=== PATIENT | female | born 1985 | race Caucasian/White ===

== ENCOUNTER 2016-07-06 15:35 | Emergency (ER) | payer OTHER ==
[2016-07-06 16:42] VITALS: BP 109/70
--- NOTE | 2016-07-06 17:05 | UC ---
Abdominal Pain Female HPI - History of Current Complaint Chief Complaint: UCAbdominalPain Stated Complaint: NAUSEA/ABDOMINAL CRAMPING X 1MO Time Seen by Provider: 07/06/16 16:36 Hx Obtained From: Patient Hx Last Menstrual Period: 06/30/16 ?: No Onset/Duration: Sudden Onset, Lasting Weeks - 4, Still Present Timing: Intermittent Episodes Lasting: - 30 minutes Severity Initially: Moderate Severity Currently: None Location: Discrete At: RUQ Radiates: No Character: Cramping Aggravating Factor(s): Food Associated Signs and Symptoms: Positive: Nausea, Diarrhea, Other: - Acholic stool - Risk Factors Ectopic Risk Factor: Negative Ovarian Torsion Risk Factor: Reproductive Age Allergies/Adverse Reactions: Allergies Allergy/AdvReac Type Severity Reaction Status Date / Time No Known Allergies Allergy Verified 07/06/16 16:42 PMH/Surg Hx/FS Hx/Imm Hx Previously Healthy: Yes Endocrine History Of: Denies: Diabetes Cardiovascular History Of: Denies: Hypertension Respiratory History Of: Denies: Asthma - Surgical History Surgical History: Yes Surgery Procedure, Year, and Place: Appendectomy, 2006, [place]; Right Oopherectomy, 2003, [place]. 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 four [drinks]" Substance Use Type: None Smoking Status (MU): Former Smoker Type: Cigarettes Amount Used/How Often: <1 PPD Length of Time of Smoking/Using Tobacco: 1 Year Have You Smoked in the Last Year: No When Did the Patient Quit Smoking/Using Tobacco: 2009 - Immunization History Most Recent Tetanus Shot: 2009 Review of Systems Constitutional: Chills, Other - sweats with chills at night Gastrointestinal: Vomiting - but mostly nausea., Diarrhea All Other Systems Reviewed And Are Negative: Yes Physical Exam Triage Information Reviewed: Yes Appearance: Well-Appearing, No Pain Distress, Well-Nourished Vital Signs: Initial Vital Signs Temp 98.4 F 07/06/16 16:37 Pulse 82 07/06/16 16:37 Resp 16 07/06/16 16:37 BP 109/70 07/06/16 16:37 Pulse Ox 100 07/06/16 16:37 Eye Exam: Normal ENT Exam: Normal Neck exam: Normal Respiratory Exam: Normal Cardiovascular Exam: Normal Abdomen Description: Positive: No Organomegaly. Negative: Nontender - Tender RUQ with positive cummins's sign. Bowel Sounds: Positive: Hypoactive Musculoskeletal Exam: Normal Neurological Exam: Normal Psychological Exam: Normal Skin Exam: Normal Abd Pain Female Course/Dx - Differential Dx/Diagnosis Differential Diagnosis: Appendicitis, Ectopic , Gall Bladder Disease Provider Diagnoses: Right upper quadrant abdominal pain. Acholic stool Discharge - Discharge Plan Condition: Stable Disposition: HOME Prescriptions: Ondansetron TAB* [Zofran Tab*] 4 mg PO Q6H PRN #20 tab PRN Reason: Nausea Patient Education Materials: Abdominal Pain (ED), Acute Nausea and Vomiting (ED ), Ondansetron (By mouth)
[2016-07-07 10:29] LABS: Hematocrit 39 % (35-47); Hemoglobin 12.9 g/dl (12.0-16.0); Mean Corpuscular HGB Conc 34 g/dl (31-36); Mean Corpuscular Hemoglobin 30 pg (27-31); Mean Corpuscular Volume 88 fL (80-97); Mean Platelet Volume 8 um3 (7.4-10.4); Red Blood Count 4.37 10^6/ul (4.0-5.4); Red Cell Distribution Width 14 % (10.5-15); White Blood Count 5.3 10^3/ul (3.5-10.8)
[2016-07-07 11:29] LABS: BUN/Creatinine Ratio 17.3 (8-20); Calcium 9.3 mg/dL (8.6-10.3); EGFR African American 85.1 (>60); EGFR Non-African American 66.2 (>60); Potassium 4.5 mmol/L (3.5-5.0); Total Bilirubin 0.4 mg/dL (0.2-1.0)
[2016-07-07 11:33] LABS: Erythrocyte Sed Rate 11 mm/Hr (0-14)
== END 2016-07-06 17:40 | disposition home or self-care (01) ==
LOC: UCCORT 15:35
DX: R10.11 Right upper quadrant pain (principal); R19.5 Other fecal abnormalities; Z90.721 Acquired absence of ovaries, unilateral; Z87.891 Personal history of nicotine dependence
CPT/HCPCS: 36415; 80053; 81025; 83690; 85025; 85652; 87086; 99212; G0463

== ENCOUNTER 2017-02-22 17:55 | Emergency (ER) | payer OTHER ==
--- NOTE | 2017-02-22 18:00 | UC ---
Respiratory Complaint HPI - HPI Summary HPI Summary: 31 YEAR OLD FEMALE PRESENTS WORSENING WITH COUGH X 2 WEEKS. SHE IS TACHYCARDIC AND CANNOT TAKE A DEEP BREATH. - History of Current Complaint Stated Complaint: COUGH,EAR COMPLAINT Time Seen by Provider: 02/22/17 17:59 Hx Obtained From: Patient Hx Last Menstrual Period: 06/30/16 Onset/Duration: Sudden Onset Severity Initially: Moderate Severity Currently: Moderate Pain Scale Used: 0-10 Numeric - 5 - Allergies/Home Medications Allergies/Adverse Reactions: Allergies Allergy/AdvReac Type Severity Reaction Status Date / Time No Known Allergies Allergy Verified 02/22/17 18:06 Home Medications: Home Medications NK [No Home Medications Reported] 02/22/17 [History Confirmed 02/22/17] PMH/Surg Hx/FS Hx/Imm Hx Previously Healthy: Yes - Surgical History Surgical History: Yes Surgery Procedure, Year, and Place: Appendectomy, 2006, [place]; Right Oopherectomy, 2003, [place]. Tubal - Family History Known Family History: Positive: Hypertension, Diabetes - Social History Alcohol Use: "weekly ... four [drinks]" Substance Use Type: None Smoking Status (MU): Former Smoker Type: Cigarettes Amount Used/How Often: <1 PPD Length of Time of Smoking/Using Tobacco: 1 Year Have You Smoked in the Last Year: No When Did the Patient Quit Smoking/Using Tobacco: 2009 - Immunization History Most Recent Tetanus Shot: 2009 Review of Systems Constitutional: Negative Skin: Negative Eyes: Negative ENT: Negative Respiratory: Cough Cardiovascular: Negative Gastrointestinal: Negative Genitourinary: Negative Motor: Negative Neurovascular: Negative Musculoskeletal: Negative Neurological: Negative Psychological: Negative All Other Systems Reviewed And Are Negative: Yes Physical Exam Triage Information Reviewed: Yes Eye Exam: Normal ENT Exam: Normal Dental Exam: Normal Neck exam: Normal Neck: Positive: 1 Respiratory: Positive: Wheezing Cardiovascular Exam: Normal Abdominal Exam: Normal Musculoskeletal Exam: Normal Neurological Exam: Normal Psychological Exam: Normal Skin Exam: Normal Respiratory Course/Dx - Differential Dx/Diagnosis Provider Diagnoses: COUGH. WHEEZING. FEVER. TACHYCARDIA Discharge - Discharge Plan Condition: Stable Disposition: AGAINST MEDICAL ADVICE Referrals: Prudencio Blandon [Physician Alarm Installer] - Additional Instructions: SPOKE TO DR CARRIZALES FROM [facility] [place] AND TOLD HIM WE FELT THE PATIENT NOT STABLE NEEDED A HIGHER LEVEL OF CARE.
[2017-02-22 18:06] VITALS: BP 131/89
[2017-02-22] MEDS ORDERED: Ibuprofen TAB* 400 MG PO ONE (18:21)
[2017-02-22] MEDS ORDERED: Albuterol/Ipratropium NEB.SOL* Albuterol 2.5 MG/Ipratropium 0.5 MG 3 ML INH ONE (18:22)
--- NOTE | 2017-02-22 19:00 | RAD ---
HISTORY: Cough, wheezing COMPARISONS: None VIEWS: 4: Frontal dual-energy and lateral views of the chest. FINDINGS: CARDIOMEDIASTINAL SILHOUETTE: The cardiomediastinal silhouette is normal. NETO: The neto are normal. PLEURA: The costophrenic angles are sharp. No pleural abnormalities are noted. LUNG PARENCHYMA: There is a diffuse reticulonodular pattern ABDOMEN: The upper abdomen is clear. There is no subphrenic gas. BONES AND SOFT TISSUES: No bone or soft tissue abnormalities are noted. OTHER: None. IMPRESSION: DIFFUSE RETICULONODULAR INTERSTITIAL OPACIFICATION. THE DIFFERENTIAL INCLUDES INFECTIOUS OR INFLAMMATORY PNEUMONITIS.
--- NOTE | 2017-02-22 20:50 | UC ---
Respiratory Complaint HPI - HPI Summary HPI Summary: TWO WEEKS OF PERSISTENT COUGH, CONGESTION. SEVERE WORSENING SHORTNESS OF BREATH FOR FOUR DAYS. LIVES IN TRAILOR WITH MOLD IN FLOODED AREA. VITAL SIGNS SHOW TACHYPNEA 36. FEVER 99.3F. TACHYCARDIA 110. - History of Current Complaint Chief Complaint: UCRespiratory Stated Complaint: COUGH,EAR COMPLAINT Time Seen by Provider: 02/22/17 17:59 Hx Obtained From: Patient Hx Last Menstrual Period: 02/18 Onset/Duration: Gradual Onset, Lasting Weeks, Still Present Timing: Intermittent Episodes Severity Initially: Moderate Severity Currently: Severe Character: Cough: Productive Associated Signs And Symptoms: Positive: URI, Hoarseness. Negative: Calf Pain, Calf Swelling, Nasal Congestion - Risk Factors Pulmonary Embolism Risk Factors: Negative Cardiac Risk Factors: Negative Pseudomonas Risk Factors: Negative Tuberculosis Risk Factors: Negative - Allergies/Home Medications Allergies/Adverse Reactions: Allergies Allergy/AdvReac Type Severity Reaction Status Date / Time No Known Allergies Allergy Verified 02/22/17 18:06 Home Medications: Home Medications NK [No Home Medications Reported] 02/22/17 [History Confirmed 02/22/17] PMH/Surg Hx/FS Hx/Imm Hx Previously Healthy: Yes - Surgical History Surgical History: Yes Surgery Procedure, Year, and Place: Appendectomy, 2006, [place]; Right Oopherectomy, 2003, [place]. Tubal ligation - Family History Known Family History: Positive: Hypertension, Diabetes - Social History Occupation: Employed Full-time Lives: With Family Alcohol Use: Occasionally Substance Use Type: None Smoking Status (MU): Former Smoker Type: Cigarettes Amount Used/How Often: <1 PPD Length of Time of Smoking/Using Tobacco: 1 Year Have You Smoked in the Last Year: No When Did the Patient Quit Smoking/Using Tobacco: 2009 - Immunization History Most Recent Tetanus Shot: 2010 Review of Systems Constitutional: Fever, Fatigue Skin: Negative Eyes: Negative ENT: Ear Ache Respiratory: Shortness Of Breath, Cough Cardiovascular: Negative Gastrointestinal: Negative Genitourinary: Negative Motor: Negative Neurovascular: Negative Musculoskeletal: Negative Neurological: Negative Psychological: Negative All Other Systems Reviewed And Are Negative: Yes Physical Exam Triage Information Reviewed: Yes Appearance: No Pain Distress, Well-Nourished, Ill-Appearing Vital Signs: Initial Vital Signs Temp 99.3 F 02/22/17 18:00 Pulse 110 02/22/17 18:00 Resp 36 02/22/17 18:00 BP 131/89 02/22/17 18:00 Pulse Ox 98 02/22/17 18:00 Vital Signs Reviewed: Yes Eye Exam: Normal ENT: Positive: Pharynx normal, Nasal congestion, TM dull Dental Exam: Normal Neck exam: Normal Neck: Positive: Supple, Nontender, No Lymphadenopathy Respiratory: Positive: Chest non-tender, No respiratory distress, Wheezing, Other: - TACHYPNEA Cardiovascular: Positive: No Murmur, Pulses Normal, Brisk Capillary Refill, Tachycardia Abdominal Exam: Normal Musculoskeletal Exam: Normal Musculoskeletal: Positive: Strength Intact, ROM Intact Neurological Exam: Normal Psychological Exam: Normal Skin Exam: Normal UC Diagnostic Evaluation - Laboratory O2 Sat by Pulse Oximetry: 98 Respiratory Course/Dx - Course Course Of Treatment: DISCUSSED CASE WITH DR GARCIA. DR GARCIA EVALUATED MEGHAN WITH ME AND RECOMMENDED TO PATIENT HIGHER LEVEL OF EVALUATION AT EMERGENCY DEPARTMENT AND DISCUSSED OPTIONS AND OUTCOMES WITH PATIENT. MEGHAN ELECTED TO GO TO [facility] BY PRIVATE CAR. - Differential Dx/Diagnosis Differential Diagnosis/HQI/PQRI: Bronchitis, SARS, Sinusitis, Other - SIRS CRITERIA Provider Diagnoses: PNEUMONITIS; SIRS CRITERIA - Physician Notification/Consults Discussed Patient Care With: Shantel Pleitez Time Discussed With Above Provider: 19:25 Instructed by Provider To: MD Will See In ED Discharge - Discharge Plan Condition: Stable Disposition: HOME Referrals: Prudencio Blandon [Physician Insurance Loss Assessor] -
== END 2017-02-22 19:29 | disposition left against medical advice (07) ==
LOC: UCCORT 17:55
DX: J18.8 Other pneumonia, unspecified organism (principal); R65.11 Systemic inflammatory response syndrome (SIRS) of non-infectious origin with acute organ dysfunction; Z53.21 Procedure and treatment not carried out due to patient leaving prior to being seen by health care provider
CPT/HCPCS: 71020; 99213; A9270-GY; G0463

== ENCOUNTER 2017-02-25 12:48 | Emergency (ER) | payer OTHER ==
[2017-02-25 14:00] VITALS: BP 106/72
[2017-02-25] MEDS ORDERED: Albuterol/Ipratropium NEB.SOL* Albuterol 2.5 MG/Ipratropium 0.5 MG 3 ML INH ONE (14:18)
--- NOTE | 2017-02-25 14:37 | RAD ---
Indication: Pneumonitis for follow-up. 2 views of the chest including dual energy PA views are reviewed. Increased density is noted in the lung bases bilaterally consistent with early infiltrates. A chronic process cannot be excluded as this appears to be similar to that seen on February 22, 2017. No pleural fluid is identified. No pneumothorax is noted. IMPRESSION: Bibasilar diffuse reticular nodular opacities. This remains unchanged from February 22, 2017.
--- NOTE | 2017-02-25 14:59 | UC ---
Respiratory Complaint HPI - HPI Summary HPI Summary: DIAGNOSED WITH PNEUMONITIS THREE DAYS AGO, SENT TO [facility]. GIVEN AMOXICILLIN AND PREDNISONE. OVERALL SYMPTOMS IMPROVING. WOULD LIKE FOLLOW UP REGARDING DIAGNOSES. - History of Current Complaint Chief Complaint: UCRespiratory Stated Complaint: F/U PNEUMONIA Time Seen by Provider: 02/25/17 13:45 Hx Obtained From: Patient Hx Last Menstrual Period: 02/19/17 Onset/Duration: Gradual Onset, Lasting Days, Still Present Timing: Intermittent Episodes Severity Initially: Severe Severity Currently: Mild Character: Cough: Productive Aggravating Factors: Exertion Associated Signs And Symptoms: Positive: Wheezing - Risk Factors Cardiac Risk Factors: Negative Pseudomonas Risk Factors: Negative Tuberculosis Risk Factors: Corticosteriod Use - Allergies/Home Medications Allergies/Adverse Reactions: Allergies Allergy/AdvReac Type Severity Reaction Status Date / Time No Known Allergies Allergy Verified 02/25/17 13:59 Home Medications: Home Medications Albuterol HFA INHALER* [Ventolin HFA Inhaler*] 2 puff INH Q4H PRN 02/25/17 [ History Confirmed 02/25/17] Amoxicillin PO (*) [Amoxicillin 875 MG (*)] 1 tab PO BID 02/25/17 [History Confirmed 02/25/17] predniSONE TAB* [Deltasone TAB*] 40 mg PO DAILY 02/25/17 [History Confirmed ] PMH/Surg Hx/FS Hx/Imm Hx Previously Healthy: Yes - Surgical History Surgical History: Yes Surgery Procedure, Year, and Place: Appendectomy, 2006, [place]; Right Oopherectomy, 2003, [place]. Tubal - Family History Known Family History: Positive: Hypertension, Diabetes - Social History Occupation: Employed Full-time Lives: With Family Alcohol Use: Weekly Substance Use Type: None Smoking Status (MU): Former Smoker Type: Cigarettes Amount Used/How Often: <1 PPD Length of Time of Smoking/Using Tobacco: 1 Year Have You Smoked in the Last Year: No When Did the Patient Quit Smoking/Using Tobacco: 2009 - Immunization History Most Recent Tetanus Shot: 2009 Review of Systems Constitutional: Negative Skin: Negative Eyes: Negative ENT: Negative Respiratory: Shortness Of Breath, Cough Cardiovascular: Negative Gastrointestinal: Negative Genitourinary: Negative Motor: Negative Neurovascular: Negative Musculoskeletal: Negative Neurological: Negative Psychological: Negative All Other Systems Reviewed And Are Negative: Yes Physical Exam Triage Information Reviewed: Yes Appearance: Well-Appearing, No Pain Distress, Well-Nourished Vital Signs: Initial Vital Signs Temp 99.2 F 02/25/17 13:55 Pulse 85 02/25/17 13:55 Resp 16 02/25/17 13:55 BP 106/72 02/25/17 13:55 Pulse Ox 97 02/25/17 13:55 Vital Signs Reviewed: Yes Eye Exam: Normal ENT Exam: Normal ENT: Positive: Normal ENT inspection, Hearing grossly normal, TMs normal Dental Exam: Normal Neck exam: Normal Neck: Positive: Supple, Nontender, No Lymphadenopathy Respiratory: Positive: Chest non-tender, No respiratory distress, No accessory muscle use, Wheezing Cardiovascular Exam: Normal Cardiovascular: Positive: RRR, No Murmur, Pulses Normal, Brisk Capillary Refill Abdominal Exam: Normal Musculoskeletal Exam: Normal Musculoskeletal: Positive: Strength Intact, ROM Intact Neurological Exam: Normal Psychological Exam: Normal Skin Exam: Normal UC Diagnostic Evaluation - Laboratory O2 Sat by Pulse Oximetry: 97 - Radiology Xray Interpretation: No Acute Changes Radiology Interpretation Completed By: ED Physician, Radiologist Respiratory Course/Dx - Differential Dx/Diagnosis Differential Diagnosis/HQI/PQRI: Asthma, Sinusitis Provider Diagnoses: PNEUMONITIS, PNEUMONIA Discharge - Discharge Plan Condition: Stable Disposition: HOME Patient Education Materials: Pneumonitis (ED), Pneumonia (ED) Forms: *Work Release Referrals: [facility] [place] PHYSICIAN REFERRAL [Outside] No Primary Care Phys,NOPCP [Primary Care Provider] - Additional Instructions: IF CONDITION CONTINUES TO IMPROVE PLEASE FOLLOW UP WITH PRIMARY CARE FOR EVALUATION IN THREE WEEKS PRIMARY CARE: There are four major types of clinical preventive care: immunizations, screening , behavioral counseling (sometimes referred to as lifestyle changes), and chemoprevention. All four apply throughout the life span. It is important to establish and to have access to a Primary Care Physician, not only for follow- up regrding acute and chronic problems, but also for preventative care.
== END 2017-02-25 15:02 | disposition home or self-care (01) ==
LOC: UCCORT 12:48
DX: J18.9 Pneumonia, unspecified organism (principal); Z87.891 Personal history of nicotine dependence
CPT/HCPCS: 71020; 99212; A9270-GY; G0463

== ENCOUNTER 2018-05-16 10:17 | Emergency (ER) | payer SELFPAY ==
[2018-05-16 12:32] VITALS: BP 125/72
--- NOTE | 2018-05-16 12:42 | UC ---
Respiratory Complaint HPI - HPI Summary HPI Summary: The patient is a 33-year-old female with a less than 24-hour history of nasal congestion ,postnasal drip' cough, chest tightness and wheezing. She has not had any fever or chills. She felt short of breath while working. She has had pneumonia in the past. She had to use an inhaler when she had pneumonia. - History of Current Complaint Chief Complaint: UCRespiratory Stated Complaint: CONGESTION,COUGH Time Seen by Provider: 05/16/18 12:40 Hx Obtained From: Patient Hx Last Menstrual Period: 05/15/18 Onset/Duration: Gradual Onset, Lasting Hours Timing: Constant Severity Initially: Mild Severity Currently: Moderate Pain Intensity: 1 Pain Scale Used: 0-10 Numeric Character: Cough: Productive Aggravating Factors: Exertion, Deep Breaths Associated Signs And Symptoms: Positive: Dyspnea - earlier, Chills, Wheezing, Nasal Congestion. Negative: Fever, Sinus Discomfort - Allergies/Home Medications Allergies/Adverse Reactions: Allergies Allergy/AdvReac Type Severity Reaction Status Date / Time No Known Allergies Allergy Verified 02/25/17 13:59 Home Medications: Home Medications Otc Cough Med 1 dose PO DAILY 05/16/18 [History Confirmed 05/16/18] PMH/Surg Hx/FS Hx/Imm Hx Previously Healthy: Yes Respiratory History: Pneumonia - Surgical History Surgical History: Yes Surgery Procedure, Year, and Place: Appendectomy, 2006, [place]; Right Oopherectomy, 2003, [place]. Tubal ligation - Family History Known Family History: Positive: Hypertension, Diabetes - Social History Alcohol Use: None Substance Use Type: None Smoking Status (MU): Former Smoker Type: Cigarettes Amount Used/How Often: <1 PPD Length of Time of Smoking/Using Tobacco: 1 Year Have You Smoked in the Last Year: No When Did the Patient Quit Smoking/Using Tobacco: 2009 - Immunization History Most Recent Tetanus Shot: 2009 Review of Systems All Other Systems Reviewed And Are Negative: Yes Constitutional: Positive: Chills Skin: Positive: Negative Eyes: Positive: Negative ENT: Positive: Nasal Discharge, Sinus Congestion Respiratory: Positive: Shortness Of Breath, Cough Cardiovascular: Positive: Negative Gastrointestinal: Positive: Negative Genitourinary: Positive: Negative Motor: Positive: Negative Neurovascular: Positive: Negative Musculoskeletal: Positive: Negative Neurological: Positive: Negative Psychological: Positive: Negative Physical Exam Triage Information Reviewed: Yes Appearance: Well-Appearing, No Pain Distress, Well-Nourished Vital Signs: Initial Vital Signs Temp 99.4 F 05/16/18 12:26 Pulse 84 05/16/18 12:26 Resp 24 05/16/18 12:26 BP 125/72 05/16/18 12:26 Pulse Ox 100 05/16/18 12:26 Vital Signs Reviewed: Yes Eyes: Positive: Conjunctiva Clear ENT: Positive: Hearing grossly normal, Nasal congestion. Negative: Nasal drainage, TMs normal, TM bulging, TM dull, TM red, Tonsillar swelling, Tonsillar exudate, Trismus, Muffled voice, Hoarse voice, Dental tenderness, Sinus tenderness, Uvula midline Neck: Positive: Supple, Nontender, No Lymphadenopathy Respiratory: Positive: No respiratory distress, No accessory muscle use, Wheezing - with forced expiration Cardiovascular: Positive: RRR, No Murmur. Negative: Tachycardia, Bradycardia Musculoskeletal: Positive: ROM Intact, No Edema Neurological: Positive: Alert Psychological Exam: Normal Skin Exam: Normal UC Diagnostic Evaluation - Laboratory O2 Sat by Pulse Oximetry: 100 - normal/not hypoxic Respiratory Course/Dx - Differential Dx/Diagnosis Provider Diagnoses: acute bronchitis with bronchospasm Discharge - Sign-Out/Discharge Documenting (check all that apply): Patient Departure All imaging exams completed and their final reports reviewed: No Studies - Discharge Plan Condition: Stable Disposition: HOME Prescriptions: Amoxicillin PO (*) [Amoxicillin 875 MG (*)] 875 mg PO BID #14 tab predniSONE [Deltasone 20 MG TAB] 40 mg PO DAILY #10 tab Patient Education Materials: Acute Bronchitis (ED), How to Use a Metered-Dose Inhaler (ED) Forms: *Work Release Additional Instructions: use inhaler as directed recheck in 4 days if not better recheck sooner for worsening symptoms - Billing Disposition and Condition Condition: STABLE Disposition: Home
[2018-05-16] MEDS ORDERED: Albuterol HFA INHALER* 8 gm MDI INH ONE (12:56)
== END 2018-05-16 13:12 | disposition home or self-care (01) ==
LOC: UCCORT 10:17
DX: J20.9 Acute bronchitis, unspecified (principal); Z87.891 Personal history of nicotine dependence
CPT/HCPCS: 99213; A9270-GY; G0463

== ENCOUNTER 2018-07-04 09:48 | Emergency (ER) | payer SELFPAY ==
--- NOTE | 2018-07-04 10:32 | UC ---
UC General HPI - HPI Summary HPI Summary: Patient is a 33 year old female , who present today to the urgent care with right-sided numbness and weakness. She noticed some headache and nausea yesterday and some numbness in the right lower leg. Denies any vomiting She took a couple of aspirins at that time. She woke up in the morning with worsening of numbness and tingling along with some weakness that she notices in the right lower extremity. There is also right upper extremity numbness and weakness that she has noticed since morning. Denies any fever, chills, cough chest pain or shortness of breath . Denies any abdominal pain , nausea or vomiting , diarrhea or constipation. - History of Current Complaint Chief Complaint: UCGeneralIllness Stated Complaint: RIGHT SIDE GOING NUMB Time Seen by Provider: 07/04/18 09:59 Hx Obtained From: Patient Hx Last Menstrual Period: "about a month ago" Pain Intensity: 0 - Allergy/Home Medications Allergies/Adverse Reactions: Allergies Allergy/AdvReac Type Severity Reaction Status Date / Time No Known Allergies Allergy Verified 07/04/18 10:15 Home Medications: Home Medications Aspirin TAB* [Aspirin 325 MG TAB*] 650 mg PO ONCE 07/04/18 [History Confirmed ] Omeprazole CAP* [Prilosec CAP* 20 MG] 20 mg PO DAILY 07/04/18 [History Confirmed 07/04/18] PMH/Surg Hx/FS Hx/Imm Hx - Additional Past Medical History Additional PMH: GERD Pneumonia Not on any home meds Previously Healthy: Yes - Surgical History Surgical History: Yes Surgery Procedure, Year, and Place: C-Sections, 2016 2010, [place]; Appendectomy, 2006, [place]; Right Oopherectomy, 2003, [place]; Tubal ligation - Family History Known Family History: Positive: Hypertension, Diabetes - Social History Alcohol Use: None Substance Use Type: None Smoking Status (MU): Former Smoker Type: Cigarettes Amount Used/How Often: <1 PPD Length of Time of Smoking/Using Tobacco: <1 PPD x 1 Year Have You Smoked in the Last Year: No When Did the Patient Quit Smoking/Using Tobacco: 2009 - Immunization History Most Recent Tetanus Shot: 2009 Review of Systems All Other Systems Reviewed And Are Negative: Yes Constitutional: Positive: Negative Skin: Positive: Negative Eyes: Positive: Negative ENT: Positive: Negative Respiratory: Positive: Negative Cardiovascular: Positive: Negative Gastrointestinal: Positive: Negative Genitourinary: Positive: Negative Motor: Positive: Weakness - Right arm and right lower leg Neurovascular: Positive: Decreased Sensation - Numbness and tingling and right upper and lower extremity Musculoskeletal: Positive: Other: - some weakness and some weakness noted Neurological: Positive: Headache, Weakness, Paresthesia, Numbness Psychological: Positive: Negative Is Patient Immunocompromised?: No Physical Exam - Summary Physical Exam Summary: Physical Exam: Const: Appears well. No signs of apparent distress present. Alert and oriented x 3. Musculo: Walks with a normal gait. Head/Face: Atraumatic, normocephalic on inspection. Eyes: EOMI and PERRLA in both eyes. Conjunctivae clear. ENT: Hearing normal Respiratory: Respirations are unlabored. Lungs clear to auscultation bilaterally, no wheezing , rhonchi or rales noted . CVS: Regular rate and Rhythm, S1S2 normal , no murmurs identified. Extremities: Peripheral circulation is grossly normal. Pulses 2+ Abdomen : Soft non tender , nondistended , Bowel sounds present . No guarding , rebound tenderness or rigidity noted. Skin: No lesions or rash located on the upper extremities or on the lower extremities. Neuro: Cranial nerves II to XII intact, motor and sensory intact. DTR Intact bilaterally. plantar downgoing . Mood is normal. Affect is normal. GCS: 15 Malcolm prehospital score scale: Smile is symmetrical Slight drift on the right side Clearly able to repeat the sentance without any slurring Triage Information Reviewed: Yes Vital Signs: Initial Vital Signs Temp 98.4 F 07/04/18 09:55 Pulse 64 07/04/18 09:55 Resp 18 07/04/18 09:55 BP 125/77 07/04/18 09:55 Pulse Ox 100 07/04/18 09:55 Vital Signs Reviewed: Yes Diagnostics - EKG Cardiac Rate: NL, Bradycardia - sinus bradycardia Cardiac Rhythm: Sinus: Normal Ectopy: None ST Segment: Normal Summary of EKG Findings: Sinus bradycardia. No ST segment elevation or depression. T wave inversion in V1, normal axis Course/Dx - Course Course Of Treatment: During the visit today, we obtained her blood blood glucose which was 95. EKG demonstrated sinus bradycardia without any ST-T wave changes. She does demonstrate some symptoms and clinical findings consistent with possible CVA. I discussed the diagnosis with the patient and plan to send her to ER via ambulance for imaging and further evaluation to rule out any central cause of her symptoms. She expressed understanding and agreed with the plan. Patient needs additional testing, thus ER transfer advised and patient agrees. Report called to the ER provider( IVANNA Bermudez) at [facility], advised provider of the history, physical examination, and duration of illness and testing so far and the need for definitive management. - Diagnoses Provider Diagnosis: CVA (cerebral vascular accident) Discharge - Sign-Out/Discharge Documenting (check all that apply): Patient Departure All imaging exams completed and their final reports reviewed: No Studies - Discharge Plan Condition: Stable Disposition: TRANS HIGHER LVL OF CARE FAC Referrals: No Primary Care Phys,NOPCP [Primary Care Provider] - Additional Instructions: Patient needs additional testing, thus ER transfer advised and patient agrees. Report called to the ER provider ( IVANNA Bermudez) at [facility], advised provider of the history, physical examination, and duration of illness and testing so far and the need for definitive management. Patient transferred to ER at [facility] via ambulance. Patient's condition stable at the time of discharge - Billing Disposition and Condition Condition: STABLE Disposition: Trans Higher Lvl of Care Fac
[2018-07-04 10:37] VITALS: BP 133/81
== END 2018-07-04 10:39 | disposition short-term general hospital (02) ==
LOC: UCCORT 09:48
DX: I63.9 Cerebral infarction, unspecified (principal); Z87.891 Personal history of nicotine dependence
CPT/HCPCS: 93005; 99213; G0463

== ENCOUNTER 2018-07-04 11:33 | Observation (INO) | payer SELFPAY ==
--- NOTE | 2018-07-04 11:48 | ED ---
Neurological HPI - HPI Summary HPI Summary: Patient is a 33 y/o F presenting to ED from [facility] via ambulance. Provider in room at 1136. 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 She noticed this while trying to grab her children's toys. She states before this Sx onset, she was "yelling at the kids". Last normal is reported to be 1900/1999 last night. This morning, right thigh was numb, lower part of her right leg was tingling. Patient went to work at [employer] at around 0802. As she was working, right arm began to tingle. She left at around 1000 when she noticed tingling. Patient reports that family members did not notice any abnormalities in patient. No difficulty with speech, no similar episodes reported. Patient had GONZALEZ and nausea yesterday, none today. No visual Sx, no blurry/double vision, no fever, no chills, no SOB, no chest pain. She reports cough but notes everyone in her home has a cough. No Hx of migraines, states she rarely gets HAs. Home medications and allergies are reviewed. In room, pulse is 64, o2 100, BP 124/89. EMS reports patient was sinus perfecto in 50s, glucose 95. NIH completed at 1159. 30 days ago was last period, no chance of . Home medications and allergies are reviewed. While patient was being loaded into ambulance for transfer to [facility], rn heart notes that her right foot slipped on some ice that was present on the sideway. Tax Attorney and stretcher with the patient in it fell and landed on their right side. Patient struck her right arm on the ground. No head injury reported. Patient notes an abrasion at right forearm but otherwise reports no other injuries or pain. - History of Current Complaint Stated Complaint: RIGHT SIDE WEAKNESS Time Seen by Provider: 07/04/18 11:37 Hx Obtained From: Patient Hx Last Menstrual Period: "about a month ago" Onset/Duration: Started hours ago - right leg and arm Sx onset this morning, Started days ago - tank truck engine mechanic weakness and right hand tingling onset yesterday at around 1900/2000 Timing: Constant Current Severity: None - pain denied. Pain Intensity: 0 Pain Scale Used: 0-10 Numeric Character: Numbness/Tingling - right arm, right leg, Motor Weakness - right tank truck engine mechanic weakness, Other: - No difficulty with speech, GONZALEZ and nausea yesterday, none today. No visual Sx, no blurry/double vision, no fever, no chills, no SOB, no chest pain. She reports some cough. 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 Negative: Visual Changes, Impaired Speech, Fever, Chest Pain, Shortness of Breath - Allergy/Home Medications Allergies/Adverse Reactions: Allergies Allergy/AdvReac Type Severity Reaction Status Date / Time No Known Allergies Allergy Verified 07/04/18 10:15 PMH/Surg Hx/FS Hx/Imm Hx Endocrine/Hematology History: Denies: Hx Diabetes Cardiovascular History: Denies: Hx Hypertension Respiratory History: Denies: Hx Asthma Sensory History: Denies: Hx Legally Blind, Hx Deafness Opthamlomology History: Denies: Hx Legally Blind EENT History: Denies: Hx Deafness Neurological History: Denies: Hx Migraine - Surgical History Surgery Procedure, Year, and Place: C-Sections, 2016 2010, [place]; Appendectomy, 2006, [place]; Right Oopherectomy, 2003, [place]; Tubal ligation - Family History Known Family History: Positive: Hypertension, Diabetes - Social History Alcohol Use: None Substance Use Type: Reports: None Smoking Status (MU): Former Smoker Type: Cigarettes Amount Used/How Often: <1 PPD Length of Time of Smoking/Using Tobacco: <1 PPD x 1 Year Have You Smoked in the Last Year: No Review of Systems Negative: Fever, Chills Eyes: Other - NEGATIVE - VISUAL CHANGES, DOUBLE VISION Negative: Blurred Vision Negative: Chest Pain Positive: Cough. Negative: Shortness Of Breath Positive: Nausea - since resolved Positive: Headache - since resolved , Weakness - right tank truck engine mechanic weakness , Numbness - tingling/numbness of right arm, right leg . Negative: Slurred Speech All Other Systems Reviewed And Are Negative: Yes Physical Exam - Summary Physical Exam Summary: Appearance: Well-appearing, mild pain distress, well-nourished Skin: Warm, color reflects adequate perfusion, dry; 7 cm abrasion to right forearm Head: Normal Head/Face inspection, atraumatic Eyes: Conjunctiva clear ENT: Normal inspection Neck: Supple, no nodes, no JVD Respiratory: Lungs clear, normal breath sounds, no respiratory distress Cardio: RRR, No murmur, pulses normal, brisk capillary refill Abdomen: Soft, nontender Bowel sounds: Present Musculoskeletal: Strength Intact/ROM intact, no calf tenderness, no edema. Psychological: Normal Neuro: A&O x3, CN II-XII intact, motor function 5/5, sensation intact, cerebellar normal; GCS 15, NIH 1. Triage Information Reviewed: Yes Vital Signs On Initial Exam: Initial Vitals Temp Pulse Resp BP Pulse Ox 98.2 F 69 20 124/89 98 07/04/18 11:36 07/04/18 11:36 07/04/18 11:36 07/04/18 11:36 07/04/18 11:36 Vital Signs Reviewed: Yes Diagnostics - Laboratory Result Diagrams: 07/04/18 10:28 07/04/18 10:28 Lab Statement: Any lab studies that have been ordered have been reviewed, and results considered in the medical decision making process. - Radiology CXR Radiology Interpretation Completed By: Radiologist Summary of Radiographic Findings: IMPRESSION: No radiographic evidence for acute cardiopulmonary abnormality on this. portable chest x-ray. THIS REPORT WAS REVIEWED BY ED PHYSICIAN. - CT BRAIN CT CT Interpretation Completed By: Radiologist Summary of CT Findings: IMPRESSION: Normal CT of the brain. THIS REPORT WAS REVIEWED BY ED PHYSICIAN. CTA HEAD CT Interpretation Completed By: Radiologist Summary of CT Findings: IMPRESSION: 1. Normal CT angiography of the head and neck with 0% degree stenosis at the bilateral. internal carotid arteries according to NASCET criteria. 2. Incidentally noted is a 2 cm low-attenuation nodule in the right lobe of the thyroid. gland. Superior characterization can be made with ultrasound of the thyroid on a. nonemergent basis. THIS REPORT WAS REVIEWED BY ED PHYSICIAN. - EKG 1231 Cardiac Rate: Bradycardia - rate of 53 BPM EKG Rhythm: Sinus Bradycardia EKG Comparison: No Significant Change - compared to EKG from 07/04/18 1003 EKG at [facility] Summary of EKG Findings: EKG showed sinus bradycardia with rate of 53 BPM, nl AVIVCT, nl QTc, no acute changes, no change compared with EKG from 07/04/18 done at 1003 at [facility]. NIH Scale - NIH Scale Level of Consciousness: Alert/Keenly Responsive Ask Patient the Month and His/Her Age: Both Correct Ask Pt to Open/Close Eyes and Senior Functional Analyst/Release Non-Paretic Hand: Both Correctly Best Gaze (Only Horizontal Eye Movement): Normal Visual Field Testing: No Visual Loss Facial Paresis-Pt to Smile & Close Eyes or Grimace Symmetry: Normal/Symmetrical Motor Function - Right Arm: No Drift-Holds 10 Seconds Motor Function - Left Arm: No Drift-Holds 10 Seconds Motor Function - Right Leg: Drifts LT 10 seconds Motor Function - Left Leg: No Drift-Holds 10 Seconds Limb Ataxia-Must be out of Proportion to Weakness Present: Absent Sensory (Use Pinprick to Test Arms/Legs/Trunk/Face): Normal Best Language (Describe Picture, Name Items): No Aphasia Dysarthria (Read Several Words): Normal Extinction and Inattention: No Abnormality Total Score: 1 Re-Evaluation - Re-Evaluation First Eval Re-Evaluation Time: 12:12 Comment: Patient to CT at this time. Second Eval Re-Evaluation Time: 12:30 Comment: Patient was re-evaluated with Dr. Brooke. Course/Dx - Course Course Of Treatment: Patient is a 33 y/o F presenting to ED from [facility] via ambulance. 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 She noticed this while trying to grab her children's toys. She states before this Sx onset, she was "yelling at the kids". Last normal is reported to be 1900/2000 last night. This morning, right thigh was numb, lower part of her right leg was tingling. Patient went to work at [employer] at around 0802. As she was working, right arm began to tingle. She left at around 1000 when she noticed tingling. Patient reports that family members did not notice any abnormalities in patient. No difficulty with speech, no similar episodes reported. Patient had GONZALEZ and nausea yesterday, none today. No visual Sx, no blurry/double vision, no fever, no chills, no SOB, no chest pain. She reports cough but notes everyone in her home has a cough. No Hx of migraines , states she rarely gets HAs. On physical exam, patient is A&O x3, CN II-XII intact, motor function 5/5, sensation intact, cerebellar normal; GCS 15, NIH 1 for right leg drift. BRAIN CT IMPRESSION: Normal CT of the brain. EKG showed sinus bradycardia with rate of 53 BPM, nl AVIVCT, nl QTc, no acute changes, no change compared with EKG from 07/04/18 done at 1003 at [facility]. Labs showed WBC 6.8, alk phos 33. Trop was 0, lactic acid 0.7. Triglycerides were 47, cholesterol 178, LDL cholesterol 119, HDL cholesterol 49.9, Beta HCG <0.6, Blood type A positive. UA showed presumptive positive for cannabinoids. Patient's case was discussed with Dr. Brooke at 1218, Dr. Brooke states that she will be in to see her. 1230 - Dr. Brooke arrives in ED , patient's case discussed further. During ED course, patient received fluids and ASA 325 PO ONCE ONE. CXR IMPRESSION: No radiographic evidence for acute cardiopulmonary abnormality on this. portable chest x-ray. CTA HEAD IMPRESSION : 1. Normal CT angiography of the head and neck with 0% degree stenosis at the bilateral. internal carotid arteries according to NASCET criteria. 2. Incidentally noted is a 2 cm low-attenuation nodule in the right lobe of the thyroid. gland. Superior characterization can be made with ultrasound of the thyroid on a. nonemergent basis. After evaluation of patient with Dr. Brooke , it was determined that patient would benefit from admission. 1344 - Dr. Alexis was consulted on patient's case, he accepts patient for admission. - Diagnoses Provider Diagnoses: Neurological deficit present - Physician Notifications Discussed Care Of Patient With: Anita Brooke Time Discussed With Above Provider: 12:18 Instructed by Provider To: Other - Patient's case was discussed with Dr. Brooke at 1218, Dr. Brooke states that she will be in to see her. 1230 - Dr. Brooke arrives in ED, patient's case discussed further. After evaluation of patient, it was determined that patient would benefit from admission. 1240 - Dr. Wan called with impressions of brain CT, reports normal. 1344 - Dr. Alexis was consulted on patient's case, he accepts patient for admission. Discharge - Sign-Out/Discharge Documenting (check all that apply): Patient Departure - admit - Discharge Plan Condition: Good Disposition: ADMITTED TO [facility] Referrals: No Primary Care Phys,NOPCP [Primary Care Provider] - - Attestation Statements Document Initiated by Scribe: Yes Documenting Scribe: DARLIN SIMON Provider For Whom Scribe is Documenting (Include Credential): NADIA LOYA MD Scribe Attestation: DARLIN Deleon , scribed for NADIA LOYA MD on 07/04/18 at 1456.
[2018-07-04] MEDS ORDERED: NS 0.9% 1000 ML* 1,000 ML IV ONE (12:02)
[2018-07-04 12:16] LABS: ABS Basophils 0.1 10^3/ul (0-0.2); ABS Eosinophils 0.1 10^3/ul (0-0.6); ABS Lymphocytes 2.4 10^3/ul (1.0-4.8); ABS Monocytes 0.4 10^3/ul (0-0.8); ABS Neutrophils 3.9 10^3/ul (1.5-7.7); ABS Nucleated RBC 0 10^3/ul; Eosinophil % 1.7 %; Hematocrit 40 % (35-47); Hemoglobin 13.7 g/dl (12.0-16.0); Lymphocyte % 35.1 %; Mean Corpuscular HGB Conc 34 g/dl (31-36); Mean Corpuscular Hemoglobin 30 pg (27-31); Mean Corpuscular Volume 89 fL (80-97); Mean Platelet Volume 8.6 fL (7.4-10.4); Nucleated Red Blood Cells % 0; Platelet Count 306 10^3/ul (150-450); Red Blood Count 4.53 10^6/ul (4.00-5.40); Red Cell Distribution Width 13 % (10.5-15); White Blood Count 6.8 10^3/ul (3.5-10.8)
[2018-07-04] MEDS ORDERED: Iodixanol* (CONTRAST) 320 MG/ML 100 ML SDV IV ONE (12:23)
[2018-07-04 12:37] LABS: Activated Partial Thrombo Time 27.7 seconds (26.0-36.3); INR 0.94 (0.77-1.02)
[2018-07-04 12:39] LABS: ALT 14 U/L (7-52); AST 21 U/L (13-39); Albumin 4.5 g/dL (3.2-5.2); Albumin/Globulin Ratio 1.6 (1-3); Alkaline Phosphatase 33 U/L (34-104); Anion Gap 8 mmol/L (2-11); BUN/Creatinine Ratio 15.7 (8-20); Blood Urea Nitrogen 13 mg/dL (6-24); CO2 Carbon Dioxide 26 mmol/L (22-32); Calcium 9.7 mg/dL (8.6-10.3); Chloride 103 mmol/L (101-111); Cholesterol 178 mg/dL; EGFR Non-African American 79.2 (>60); Globulin 2.9 g/dL (2-4); Glucose 95 mg/dL (70-100); HDL Cholesterol 49.9 mg/dL; LDL Cholesterol 119 mg/dL; Sodium 137 mmol/L (135-145); Total Protein 7.4 g/dL (6.4-8.9); Triglycerides 47 mg/dL
[2018-07-04 12:44] LABS: HCG Pregnancy < 0.60 mIU/mL
[2018-07-04 12:52] LABS: Barbiturates Urine Screen None Detected (None Detect); Benzodiazepine Urine Screen None Detected (None Detect); Urine Cannabinoids Screen Presumptive Positive (None Detect)
[2018-07-04] MEDS ORDERED: Aspirin TAB* 325 MG PO ONE (13:05)
[2018-07-04] MEDS ORDERED: Acetaminophen TAB* 325 MG PO PRN (15:15)
[2018-07-04] MEDS ORDERED: Al Hydrox/Mg Hydrox/Simet LIQ* 30 ML UDC PO PRN (15:15)
[2018-07-04] MEDS ORDERED: Ondansetron INJ* 2 MG/ML VIAL IV PRN (15:15)
[2018-07-04] MEDS ORDERED: Enoxaparin(*) 40 MG/0.4 ML SYR SUBCUT SCH (16:00)
--- NOTE | 2018-07-04 16:35 | CONS ---
CONSULTATION REPORT: DATE OF CONSULT: 07/04/18 REQUESTING PHYSICIAN: Kalyani Vick MD. HISTORY OF PRESENT ILLNESS: Rosa Hernadez is a 33-year-old woman with minimal past medical history, who noticed some right hand dysfunction last night at about 7:00 p.m. She felt like her right hand was weak. She did not notice any numbness at that time. She went to bed around 9:00 p.m. 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 She was able to coordinate her hands and function, but she then started developing numbness over the right lateral thigh and numbness over the right arm, which she described on the posterior aspect of the right arm down to the digits 3 through 5 in the right hand. She found that it harder to walk and had a hard time knowing where she was placing her right foot. With these symptoms, she came into the emergency room for evaluation. She initially came to [facility] and was then transported. ER physician notes that there was an incident of injury when the patient and EMS slipped on ice. PAST MEDICAL HISTORY: Includes a cyst on the right ovary resulting in removing that ovary and fallopian tube. She has had 2 C-sections and a tubal ligation. She has had appendectomy after a rupture. MEDICATIONS: She is currently on omeprazole 20 mg p.o. daily. ALLERGIES: She has no known drug allergies. FAMILY HISTORY: Includes father with a heart issue, but she does not know all of his history. Her mother had diabetes. She has a son and a daughter, who are both healthy. SOCIAL HISTORY: She lives with her fiance and 2 children. She stopped smoking prior to her . She had smoked for only 1 year prior. She does not drink alcohol, she stopped 8 months ago. Prior to that time , she drank a [id number]. She felt that it was getting to be a problem and therefore she stopped. She has smoked some marijuana, however, has never used cocaine or heroine or any other non-prescribed drugs. REVIEW OF SYSTEMS: There has been no change in vision. There has been no change in speech. She had no difficulty swallowing. She indicates that there was some chest pain lasting for about 2 minutes with no sweating. Some shortness of breath in the setting of recent bronchitis. She did have headache over the last 2 days, which is unusual for her. It was in the right forehead, it was constant with no photophobia or phonophobia, rated at 5 to 6 out of 10. She had the headache yesterday morning and took an aspirin, it went away, and she did not have a headache when the symptoms started. She had some bowel urgency yesterday and some diarrhea. There is a history of scoliosis. She denies any skin conditions and there has been no recent rashes. She has lost 35 pounds. She only eats 1 to 2 meals a day. There has been stress in the setting of her move and buying a furnace which no longer works and she does not have a working furnace in the cold in [place]. She describes having symptoms of depression and anxiety, and she feels that part of the reason she drank so much in the past. Of note, she denies any history of autoimmune disease known in her family and no history of early stroke or clot. She does think she was told at some point she may have an autoimmune condition herself, but she did not know the name of it. PHYSICAL EXAM: On examination, her most recent vitals included blood pressure of 133/88, heart rate 79, respiratory rate was 14 and repeated at 28, saturation was 100%, temperature was 98.2 degrees Fahrenheit. She had a regular cardiac rhythm. Her lungs were clear to auscultation. There was no evidence of peripheral edema. Her peripheral pulses were intact. No rashes were noted. She was awake, alert, articulate, had normal language function, adequate fund of knowledge. Her pupils were equal and responsive to light. Her fundi were flat. She had full extraocular movements with no nystagmus, full shultz to confrontation. Her facial expression, sensation, and hearing were equal. Palate was upgoing. Tongue was midline. Sternocleidomastoid and trapezius were 5/5 in strength. There was a right pronator drift. She gave good strength in her left upper extremity. There was variable giveaway weakness to about 4+/5 in the right deltoid, biceps, triceps, and intrinsic hand muscles. In the lower extremities, she had a right leg drift. Left leg was strong. Right leg showed some variable weakness about 4+ in hip flexion, knee flexion, and extension with good strength bilaterally and foot dorsiflexion and EHL. There was no dysmetria with yjjamo-[id number]-[id number] and heel-to- peña movements. She felt that there was decreased sharp light touch and cold sensation in the right arm and leg. Her reflexes were 2+ and symmetric in the upper and lower extremities. Her toes were flexor response. Gait was not tested given clinical status. DIAGNOSTIC STUDIES/LAB DATA: Data includes complete metabolic panel with slightly low alk phos, otherwise within normal limits. Her nonfasting lipid profile shows cholesterol 178, LDL was 119 with triglycerides of 47, HDL 49.9. Her tox screen was presumed positive for cannabinoids. She had a CT of the brain, which showed no significant acute findings. This film was reviewed directly. The CTA report is still pending. I have reviewed it and did not see any clear pathology, but await radiologist's detailed review. IMPRESSION: A 33-year-old woman with minimal past medical history now with progressive right-sided weakness and numbness starting at 7:00 p.m. last night with NIH Stroke Scale of 3 at 12:30 p.m. including right arm and leg drift and decreased light touch, sharp, and cold on the right-hand side with elevated diastolic blood pressure in the emergency room. Differential diagnosis is wide. Certainly ischemia is on the differential diagnosis. She has received aspirin in the ER after a swallow test. She is to be admitted to telemetry. She will be having an echocardiogram with bubble study. I have asked for fasting lipid profile. In addition, I have asked for MRI of the brain with gadolinium after 1:00 p.m. tomorrow for differential diagnosis not only of ischemia but also of alternative STATIONARY FIREMAN pathology such as demyelination. She will need her blood pressure monitored and I would treat if her blood pressure gets over 180/100. For now, permissive hypertension is appropriate. She does have elevated diastolic blood pressure in the ER and this may be secondary to stress; however if this continues, she may need treatment in the future. She will need to have a primary doctor on discharge for ongoing treatment and monitoring. In this age group, demyelination or autoimmune inflammatory etiology is on the differential diagnosis. Accordingly, I have suggested that the MRI of the brain be done with and without contrast after 1:00 p.m. tomorrow. Timing is so that it will more than 24 hours since she was given contrast today. Stress is on potential differential diagnosis. Some of her history suggests more of a peripheral nervous system distribution and the light touch, sharp, and cold sensation loss in the right leg was more in the distribution of the lateral cutaneous nerve of the thigh. Sometimes when people are under profound stress and they get symptoms in more in one limb on one side of the body, it can result in further symptomatology. There is a variable component to her exam. This is a diagnosis of exclusion. Education was given regarding differential diagnosis and plan for admission and further workup and treatment. All questions were answered. An [id number]-half was spent in the patient's care. [id number]/[facility] #: [id number] ERNESTO
[2018-07-04 19:30] LABS: Urine Appearance Clear; Urine Bacteria Absent (Absent); Urine Bilirubin Negative (Negative); Urine Blood 2+ (Negative); Urine Color Yellow; Urine Glucose Negative (Negative); Urine Ketones 1+ (Negative); Urine Nitrite Negative (Negative); Urine Protein Negative (Negative); Urine Red Blood Cell 1+(3-5/hpf) (Absent); Urine Specific Gravity 1.045 (1.010-1.030); Urine Urobilinogen Negative (Negative); Urine White Blood Cell Trace(0-5/hpf) (Absent)
--- NOTE | 2018-07-04 19:35 | HP ---
CC: Dr. Anita Brooke * HISTORY AND PHYSICAL: DATE OF ADMISSION: 07/04/18 PRIMARY CARE PROVIDER: None. ATTENDING PHYSICIAN: Prabhjot Alexis MD * (report dictated by Rupa Rodgers NP) CHIEF COMPLAINT: Right hand numbness and weakness. HISTORY OF PRESENT ILLNESS: Ms. Hernadez is a 33-year-old female with past medical history of GERD and scoliosis who presents to the emergency room today with right- sided weakness. The patient reports that she first noticed her right hand weakness yesterday at approximately 1900. She did not think much of it and went to bed around 2100. This morning, she woke and still had the right hand weakness. 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 After approximately an hour at work, she started to develop right thigh and right arm numbness. The numbness in her right arm was extending down to fingers 3 through 5. She reports a tingling sensation. She felt as though she had difficulty walking as she could not tell where her right foot was being placed. She felt as though she appeared to have a limping gait. The patient presented to [facility] this morning where they advised that she should come to the emergency room. She was loaded on to a stretcher by EMS and when leaving the building at [facility], the EMS crew slipped on some ice and the stretcher fell over causing the patient to sustain an abrasion on her left arm. She denies any other injuries from the incident. She reports a recent episode of bronchitis in April during which time she was prescribed amoxicillin and prednisone. That illness resolved. She has had multiple other upper respiratory infections since that time. She reports having a headache for the last 2 days, approximately 5/10 in the frontal region. She reports that she typically does not have headaches, so this was unusual for her. The headache pain was relieved with an aspirin. She had 1 episode of diarrhea yesterday, though no further GI complaints. She does note that she has struggled with depression and anxiety in the past, though feels as though her anxiety is particularly bad at this point due to a recent move. She reports that the furnace in her home is currently not working. She has a reported 35-pound weight loss, although the timeframe of this is unknown. Upon arrival to the emergency room, the patient was seen by Dr. Brooke from Neurology who notes that the patient had an NIH stroke scale of 3. She had a brain CT, which was unremarkable and a head and neck CTA, which was unremarkable except for an incidental finding of a thyroid nodule. She had lab work, which was unremarkable. She was positive for cannabinoids on her tox screen. Because of the concern for these neurological symptoms, the hospitalist service was asked to evaluate for admission. PAST MEDICAL HISTORY: 1. GERD. 2. Scoliosis. PAST SURGICAL HISTORY: 1. Right oophorectomy. 2. x2. 3. Tubal ligation. 4. Appendectomy. HOME MEDICATIONS: Omeprazole 20 mg p.o. daily. ALLERGIES: No known drug allergies. FAMILY HISTORY: The patient reports that her father has some heart conditions, though she is not sure of the specifics. She reports that her mother has diabetes. SOCIAL HISTORY: The patient is a previous smoker. She reports approximately 1 pack per day for 1 year and she quit in 2009. She reports being a previous drinker; she quit approximately 8 months ago, although before that, was drinking 12 plus beers per day. She uses marijuana occasionally. 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 Her fiance , Zelalem, will be her surrogate decision maker in the event she is unable to make her own decisions. REVIEW OF SYSTEMS: An 11-point review of systems was performed and all the pertinent positive and negative findings are in the HPI. All other systems are negative. PHYSICAL EXAMINATION GENERAL: Ms. Hernadez is a well-developed, well-nourished, overweight white woman , sitting in bed, in no acute distress. She appears her stated age. VITAL SIGNS: Temp 98.2, heart rate 60, respiratory rate 16, oxygen saturation 100% on room air, blood pressure 136/83. HEENT: Head is atraumatic, normocephalic. Visual shultz are grossly intact. Pupils are equal, round, and reactive to light and accommodation. Extraocular movements are intact. Oral mucous membranes are moist and without lesions. NECK: Full range of motion. Thyroid not palpable. Trachea midline. No lymphadenopathy. RESPIRATORY: Symmetrical chest expansion. No chest wall deformities. Lungs clear to auscultation throughout. No rhonchi, wheezes, or rales. CARDIOVASCULAR: Regular rate and rhythm. S1, S2 present. No murmurs, rubs, or gallops. No JVD. ABDOMEN: Soft, nontender to palpation. Bowel sounds are normoactive throughout. EXTREMITIES: Skin is warm and smooth bilaterally. No edema. No clubbing or cyanosis. Pedal pulses 2+ bilaterally. MUSCULOSKELETAL: Full range of motion. No pain or deformities. NEURO: Awake, alert and oriented x4. Cranial nerves II through XII grossly intact. Moves all extremities. Motor strength is 5/5 in left upper and left lower extremity and 3/5 in right and lower extremities. There are no other focal neurological deficits. Gait was not tested. SKIN: There is a small abrasion to her left elbow, otherwise skin is grossly intact. DIAGNOSTIC STUDIES AND LABORATORY DATA: WBC 6.8, RBC 4.53, hemoglobin 13.7, hematocrit 40, platelets 306,000. INR 0.94. Sodium 137, potassium 4.0, chloride 103, carbon dioxide 26, BUN 13, creatinine 0.83, glucose 95. Lactic acid 0.7. Troponin 0.00. Triglycerides 47, total cholesterol 178, LDL 119, HDL 49. Beta-hCG less than 0.6. Toxicology positive for cannabinoids. Brain CT reads as normal CT of the brain. Chest x-ray reads as no radiographic evidence for acute cardiopulmonary abnormality. Head CTA reads as normal CT angiography of the head and neck with 0% degree stenosis of the bilateral internal carotid arteries according to NASCET criteria. Incidentally noted is a 2 cm low attenuation nodule in the right lobe of the thyroid gland. Superior characterization can be made with ultrasound of the thyroid on a nonemergent basis. EKG shows sinus bradycardia with a rate of 53, QTc 381, no ischemic changes. ASSESSMENT AND PLAN: Ms. Hernadez is a 33-year-old female with past medical history of gastroesophageal reflux disease and scoliosis who presented to the emergency room today with complaints of right hand numbness and weakness and was evaluated in the emergency room by Neurology who recommended admission. The patient will be admitted observation for: 1. Right-sided weakness and numbness. The etiology of this is unclear, although the differential is wide including transient ischemic attack, cerebrovascular accident, DRESS. I have spoken with Dr. Anita Brooke who recommended aspirin 81 mg daily. We will allow permissive hypertension up to 180/100 because of the concern for transient ischemic attack or cerebrovascular accident. Dr. Brooke recommended a lipid panel, which has already been completed. We will also check a TTE with bubble study and MRI of the brain with and without contrast tomorrow after 1300 (due to the patient receiving contrast today for a CTA). She will be monitored on telemetry and we will do neuro checks every 4 hours. The patient did pass a dysphagia screening in the emergency room and so, swallowing is not of a concern at this point. I have placed a formal consult for Neurology. I have also placed a social work consult due to her home concern about lack of heat. 2. Thyroid nodule. This nodule was an incidental finding and is not of concern at this time, though because the patient does not have insurance, we will go ahead and do a thyroid ultrasound during this admission. 3. Gastroesophageal reflux disease. I will continue her omeprazole. 4. Fluids, electrolytes, and nutrition. The patient does not require any fluid resuscitation or electrolyte repletion at this time. I have ordered a heart healthy diet. 5. Code status. The patient will be a full code. 6. DVT prophylaxis. According to the DVT Risk Assessment, the patient scores a 1 putting her at low risk. I have ordered Lovenox. TIME SPENT: Approximately 60 minutes were spent on this admission, greater than half of that time spent [id number] with the patient and her significant other obtaining my history, performing my physical exam, and reviewing the plan of care. This case has been reviewed with my attending, Dr. Alexis, who is in agreement with the plan of care. RUPA RODGERS, CAPTURE MANAGER [id number]/[facility] #: [id number] ERNESTO
[2018-07-05 06:39] LABS: ABS Basophils 0 10^3/ul (0-0.2); ABS Eosinophils 0.2 10^3/ul (0-0.6); ABS Lymphocytes 2.1 10^3/ul (1.0-4.8); ABS Monocytes 0.5 10^3/ul (0-0.8); ABS Neutrophils 2.9 10^3/ul (1.5-7.7); ABS Nucleated RBC 0 10^3/ul; Eosinophil % 3.1 %; Hematocrit 37 % (35-47); Hemoglobin 13.1 g/dl (12.0-16.0); Lymphocyte % 36.7 %; Mean Corpuscular HGB Conc 35 g/dl (31-36); Mean Corpuscular Hemoglobin 31 pg (27-31); Mean Corpuscular Volume 88 fL (80-97); Mean Platelet Volume 8.4 fL (7.4-10.4); Nucleated Red Blood Cells % 0.1; Platelet Count 252 10^3/ul (150-450); Red Blood Count 4.21 10^6/ul (4.00-5.40); Red Cell Distribution Width 13 % (10.5-15); White Blood Count 5.7 10^3/ul (3.5-10.8)
[2018-07-05 06:56] LABS: BUN/Creatinine Ratio 11.3 (8-20); Calcium 8.9 mg/dL (8.6-10.3); EGFR Non-African American 82.6 (>60); Potassium 3.9 mmol/L (3.5-5.0)
--- NOTE | 2018-07-05 08:48 | ECHO ---
Patient: ROBE MARQUEZ Rec#: [id number] : 1985 Date: 07/05/2018 Age: 33y Height: 173 cm / 68.1 in Weight: 90.3 kg / 199.0 lbs Sex: F BSA: 2.04 Room#: [facility] Admit Date#: 07/04/2018 Type: Inpatient Referring: Rupa Rodgers Reading: Rajinder Baer MD Network Cabler: In[facility]GER[facility] Transthoracic Echocardiogram Indication: TIA BP: 124/81 HR: 56 Rhythm: Bradycardia Findings History: Former smoker, marijuana use. Technical Comments: The study quality is good. Completed at 0820. Left Ventricle: The left ventricular chamber size is normal. There is no left ventricular hypertrophy. Global left ventricular wall motion and contractility are within normal limits. Left ventricular systolic function is at the lower limits of normal. The estimated ejection fraction is 50-55%. Normal left ventricular diastolic filling is observed. Left Atrium: The left atrial chamber size is normal. Right Ventricle: Moderator Band present. The right ventricular cavity size is normal. The right ventricular global systolic function is low normal. Right Atrium: The right atrium is mildly dilated. Interatrial septum appears intact without evidence of shunting. The bubble study is negative. A patent foramen ovale is not demonstrated with color Doppler and agitated contrast. Aortic Valve: The aortic valve is trileaflet. There is no evidence of aortic valve thickening. There is no evidence of aortic regurgitation. There is no evidence of aortic stenosis. Mitral Valve: The mitral valve leaflets do not appear thickened. There is trace to mild mitral regurgitation. Tricuspid Valve: The tricuspid valve leaflets are normal. There is trace to mild tricuspid regurgitation. The right ventricular systolic pressure is estimated at 21 mmHg. No pulmonary hypertension is noted. There is no tricuspid stenosis. Pulmonic Valve: The pulmonic valve appears normal. There is a trace pulmonic regurgitation. There is no pulmonic stenosis. Pericardium: There is no significant pericardial effusion. Aorta: There is no dilatation of the ascending aorta. There is no dilatation of the aortic arch. The aortic root is normal in size. Pulmonary Artery: The main pulmonary artery appears normal. Venous: The inferior vena cava appears normal in size. There is a greater than 50% respiratory change in the inferior vena cava dimension. Contrast: Intravenous agitated saline contrast was used to assess intracardiac shunting. Images 87-89. Summary: There was not any prior study for comparison. Conclusions There is no left ventricular hypertrophy. Left ventricular systolic function is at the lower limits of normal. The estimated ejection fraction is 50-55%. The right ventricular global systolic function is low normal. A patent foramen ovale is not demonstrated with color Doppler and agitated contrast. There is no evidence of aortic stenosis. There is trace to mild mitral regurgitation. There is trace to mild tricuspid regurgitation. No pulmonary hypertension is noted. There is no significant pericardial effusion. Measurements Name Value Normal Range RVIDd (AP) 2D 2.9 cm (0.9 - 2.6) RVDdMajor (2D) 4.3 cm (2.2 - 4.4) RAd ISD 4CH 5 cm (3.4 - 4.9) RA (A4C)W 4.2 cm (2.9 - 4.6) IVSd (2D) 0.9 cm (0.6 - 1) LVPWd (2D) 0.9 cm (0.6 - 1) LVIDd (2D) 4.7 cm (3.6 - 5.4) LVIDs (2D) 3.3 cm - LV FS (2D) 31 % (25 - 45) Aortic Annulus 2 cm (1.4 - 2.6) Ao root diameter (2D) 2.8 cm (2.1 - 3.5) Ascending Ao 2.9 cm (2.1 - 3.4) Aortic arch 2 cm (1.8 - 3.4) LA dimension (AP) 2D 4.1 cm (2.3 - 3.8) LAd ISD 4CH 4.2 cm (2.9 - 5.3) LA ISD 4CH W 2.9 cm (2.5 - 4.5) Name Value Normal Range LA ESV BP (A/L) index 28 ml/m2 - Name Value Normal Range MV E-wave Vmax 0.7 m/sec - MV deceleration time 173 msec - MV A-wave Vmax 0.4 m/sec - MV E:A ratio 2 ratio - LV septal e' Vmax 0.13 m/sec - LV lateral e' Vmax 0.17 m/sec - LV E:e' septal ratio 5.4 ratio - LV E:e' lateral ratio 4.1 ratio - Name Value Normal Range AV Vmax 1.4 m/sec - AV VTI 32 cm - AV peak gradient 8 mmHg - AV mean gradient 4 mmHg - LVOT Vmax 1.1 m/sec - LVOT VTI 24 cm - LVOT peak gradient 5 mmHg - LVOT mean gradient 3 mmHg - SIMI Vmax 1.2 m/sec - Name Value Normal Range TR Vmax 2.1 m/sec - TR peak gradient 18 mmHg - RAP 3 mmHg - RVSP 21 mmHg - IVC diameter 1.8 cm - Name Value Normal Range PV Vmax 0.8 m/sec - PV VTI 3 cm - PA Vmax 0.8 m/sec -
[2018-07-05] MEDS ORDERED: Omeprazole CAP (NF) 20 MG CAP.DR PO SCH (09:00)
[2018-07-05] MEDS ORDERED: Aspirin 81 mg CHEW TAB* 81 MG TAB.CHEW PO SCH (09:00)
[2018-07-05 15:27] VITALS: BP 133/67
[2018-07-05] MEDS ORDERED: Gadoteridol* (CONTRAST) 279.3 MG/ML 10 ML IV ONE (15:28)
--- NOTE | 2018-07-05 18:46 | PN ---
Subjective Date of Service: 07/05/18 Length of Stay: 1 Days Neurology is following Ms. Hernadez for the evaluation and management of right hand weakness and numbness of the right thigh. Interval History: Examiner entered the room and the patient was crying. She misses her children and has never left them overnight. She denied any hand numbness or weakness. She denied any headaches. She denied any visual disturbance, double vision, dysarthria, swallowing impairment, or problems with her bladder or bowel functions. She has lost weight and wears "jeggings." Review of Systems: Denied CP, SOB, or palpitations. Objective Active Medications: Acetaminophen (Tylenol Tab*) 650 mg PO Q4H PRN PRN Reason: FEVER/PAIN Al Hydrox/Mg Hydrox/Simethicone (Maalox Plus*) 30 ml PO Q6H PRN PRN Reason: INDIGESTION Aspirin (Aspirin 81 Mg Chew Tab*) 81 mg PO DAILY [facility] Last Admin: 07/05/18 09:28 Dose: 81 mg Enoxaparin Sodium (Lovenox(*)) 40 mg SUBCUT Q24H [facility] Last Admin: 07/04/18 16:37 Dose: 40 mg Omeprazole (Prilosec Cap*) 20 mg PO DAILY [facility] Last Admin: 07/05/18 09:28 Dose: 20 mg Ondansetron HCl (Zofran Inj*) 4 mg IV Q4H PRN PRN Reason: NAUSEA/VOMITING Vital Signs 07/04/18 07/05/18 07/05/18 20:00 00:09 03:38 Temperature 98.4 F 97.9 F Pulse Rate 73 71 Respiratory 20 20 Rate Blood Pressure 121/62 124/81 (mmHg) O2 Sat by Pulse 100 99 100 Oximetry 07/05/18 07/05/18 07:23 11:46 Temperature 98.8 F 97.2 F Pulse Rate 70 55 Respiratory 16 16 Rate Blood Pressure 127/77 133/67 (mmHg) O2 Sat by Pulse 100 98 Oximetry Intake and Output Last 24 Hours 07/03/18 07/04/18 07/05/18 07/06/18 06:59 06:59 06:59 06:59 Intake Total 0 720 Balance 0 720 Weight 199 lb 4.8 oz 199 lb 4.8 oz Intake: Oral 0 720 Other: Estimated Void Medium # Voids 1 Oxygen Devices in Use Now: None Neurology Exam: General: Well nourished female in no acute distress. HEENT: Normocephalic/atraumatic, sclera anicteric, mucous membranes moist Neck: Supple Chest: Clear to auscultation bilaterally Cardiovascular: Regular rate and rhythm without murmurs, rubs, gallops Extremities: No clubbing, cyanosis, or edema Neurological Findings: Awake, Alert, Oriented x3 Speech: fluent without dysrhythmia, repetition intact Cranial Nerve: PEERL, EOM intact, VFF, no nystagmus, face symmetric bilaterally , facial sensation intact, hearing intact to finger rub bilaterally, palate elevates symmetrically, tongue midline, SCM and Trapezius s/s. Motor: s/s throughout, proximal and distal extremities x4 tone/bulk normal Sensation: intact to LT/PP bilaterally upper and lower extremities Deep Tendon Reflex: 2+ symmetric in the upper/lower extremities, Babinski - down going Finger to nose, rapid alternating movements intact without tremor, no dysdiadochokinesia Gait: intact with good arm swing and stride Result Diagrams: 07/05/18 06:17 07/05/18 06:17 Diagnostic Imaging: MRI brain with and without contrast from 07/05/2018: no acute intracranial abnormality. Personally reviewed. Assessment/Plan Ms. Hernadez is a 33-year-old female with gradual, transient onset of inability to review coordinator the right hand and right thigh paresthesia. 1. 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 Refer for EMG/NCS of the upper extremity bilaterally. Other differential diagnosis include C6-7 radiculopathy. Obtain an MRI C spine without contrast as an outpatient. 2. Suspect meralgia paresthesia on the right. I will follow-up with the patient in 3 weeks. We will arrange a follow-up. Time spent: 25 minutes obtaining history, examining the patient, and discussing the treatment plan and diagnosis. She did not have a stroke or TIA. No need for anti-platelet therapy. D/w bedside nurse and Rupa. Pt will be discharged to home today.
--- NOTE | 2018-07-06 19:43 | DS ---
CC: Dr. Parish * DISCHARGE SUMMARY: DATE OF ADMISSION: 07/04/18 DATE OF DISCHARGE: 07/05/18 PRIMARY CARE PROVIDER: None. ATTENDING PHYSICIAN: Dr. Yolie Sena * (dictated by Marilyn Rodgers NP). PRIMARY DIAGNOSES: 1. Focal neuropathy, suspect right hand carpal tunnel and right leg meralgia paresthetica. 2. Thyroid nodules. SECONDARY DIAGNOSIS: Gastroesophageal reflux disease. STUDIES WHILE IN THE HOSPITAL: 1. Brain CT on 07/04/[address] of the brain. 2. Chest x-ray on 07/04/18 reads as no radiographic evidence for acute cardiopulmonary abnormality. 3. EKG on 07/04/18 shows sinus bradycardia with a rate of 53; QTc 381; small Q waves present in I, II, aVL, V5 and V6. No acute changes. 4. Head CTA on 07/04/[address] angiography of the head and neck with 0% degree stenosis of the bilateral internal carotid arteries according to NASCET criteria. Incidentally noted is a 2 cm low attenuation nodule in the right lobe of the thyroid gland. Superior characterization can be made with ultrasound of the thyroid on a nonemergent basis. 5. Transthoracic echocardiogram on 07/05/18 reads as there is no left ventricular hypertrophy. Left ventricular systolic function is at the lower limits of normal. The estimated ejection fraction is 50% to 55%. The right ventricular global systolic function is low normal. A patent foramen ovale is not demonstrated with color Doppler and agitated contrast. There is no evidence of aortic stenosis. There is trace to mild mitral regurgitation. There is trace to mild tricuspid regurgitation. No pulmonary hypertension is noted. There is no significant pericardial effusion. 6. Brain MRI on 07/05/18 reads as no intracranial lesion is identified. 7. Thyroid ultrasound on 07/05/18 reads as in the right lobe of the thyroid, there are 2 thyroid nodules that exhibit intermediate and low suspicion sonographic patterns, but both meet size criteria to recommend biopsy. Nodules measure 2.4 x 1.8 x 2.1 cm and 1.4 x 1.9 x 1.5 cm. HISTORY OF PRESENT ILLNESS AND HOSPITAL COURSE: Ms. Hernadez is a 33-year-old female with past medical history of GERD, who presented to the emergency room on 07/04/18 with complaints of right hand numbness and weakness. Please see the history and physical by myself for a complete summary of the events leading up to this hospitalization. In short, the patient noted right hand weakness the day prior to admission. She went to bed and when she awoke, still had the right hand weakness. She went to work and while at work, developed numbness in the right arm as well as numbness in the right leg. She felt as though she had difficulty ambulating because of the numbness and heavy sensation in her right foot. She was concerned about these symptoms and presented to [facility]. She was then transferred to the emergency room here for further evaluation. In the emergency room, the patient was seen by Dr. Brooke from Neurology, who reported that the patient had an NIH Stroke Scale of 3. She had unremarkable imaging as noted above except for a thyroid nodule. Her tox screen was positive for cannabinoids. Because of the concern for neurological deficits, she was admitted by the hospitalist service. The cause of her right-sided weakness and numbness was unclear at first. She had a brain MRI as noted above, which was unremarkable. On 07/05/18, she was seen by Dr. Parish from Neurology, who suspected that these focal neuropathies represented right median mononeuropathy of the right wrist and meralgia paresthetica in the right leg. As of 07/05/18, her symptoms had completely resolved and she had no further neurological deficits. Dr. Parish recommended that she follow up with him in 3 weeks and advised that she did not require any further treatment at this time and did not require any antiplatelet therapy as there was no concern for TIA or CVA. I will note that the patient did have a thyroid ultrasound while here in the hospital, although on the CT scan, this was recommended to be done on a nonemergent basis, there was some concern that the patient did not have insurance and so we felt as though it would be beneficial for her to have that ultrasound while here in the hospital. The results of that ultrasound are noted above. I have spoken with the patient and advised her of the results of this ultrasound and that she has 2 nodules exhibiting intermediate and low suspicion, though both meet size criteria to be biopsied. The patient does not have a primary care provider and so she agreed to follow up with the [facility]. As of the day of discharge, the patient reports feeling well and is anxious to return home. She has no focal neurological deficits. Ms. Hernadez is stable for discharge today. Vital signs are as follows: Temp 97.2 , heart rate 65, respiratory rate 16, oxygen saturation 98% on room air, blood pressure 133/67. DISCHARGE MEDICATIONS: Continued medication: Omeprazole 20 mg p.o. daily. DISCHARGE PLAN: Ms. Hernadez will be discharged home. Activity will be as tolerated. Diet will be regular as tolerated. As I noted above, the patient has agreed to follow up with the [facility]. I did speak with someone at [facility] and they will call her to schedule an appointment in the next few days. She has also been advised that she will need to follow up with Dr. Parish in approximately 3 weeks and he stated that his office would call her to schedule an appointment. She can continue her omeprazole and has no new medications. She has been advised to return to the emergency room for any worsening of symptoms, shortness of breath, lightheadedness, dizziness, chest discomfort, high fevers, chills, night sweats, loss of consciousness, or any other worrisome signs or symptoms. This is a summarized report of a complex medical history and hospital stay. For further details, please see the entire medical record. TIME SPENT: Approximately 40 minutes were spent on this discharge. MARILYN RODGERS NP [id number]/[facility] #: [id number] ERNESTO
== END 2018-07-05 19:30 | disposition home or self-care (01) ==
LOC: ED 11:33 → MEDTELE 15:15
PROVIDERS: ADMIT Internal Medicine; ATTEND Internal Medicine
DX: G62.9 Polyneuropathy, unspecified (principal); E04.1 Nontoxic single thyroid nodule; K21.9 Gastro-esophageal reflux disease without esophagitis; R53.1 Weakness; R05 Cough; R51 Headache; Z87.891 Personal history of nicotine dependence
CPT/HCPCS: 36415; 70450; 70496; 70498; 70553; 71045; 76536; 80048; 80053; 80061; 80307; 81003; 81015; 83605; 84484; 84702; 85025; 85610; 85730; 86850; 86900; 86901; 87086; 93005; 93306; 99285; A9270-GY; A9579; G0378; J1650; Q9967

== ENCOUNTER 2018-11-03 10:13 | Emergency (ER) | payer MEDICAID, OTHER ==
[2018-11-03 10:58] VITALS: BP 103/72
--- NOTE | 2018-11-03 11:14 | UC ---
Respiratory Complaint HPI - HPI Summary HPI Summary: Pt c/o cough, nasal congestion, PND, ST, fever, chest congestion, and generalized malaise X 5 days. Pt has been taking OTC cold and cough medications with some improvement of symptoms. - History of Current Complaint Chief Complaint: UCRespiratory Stated Complaint: SINUSES, COUGH Time Seen by Provider: 11/03/18 11:04 Hx Obtained From: Patient Hx Last Menstrual Period: "About a month ago; it should be here within the week. " ?: No Onset/Duration: Gradual Onset, Lasting Days, Still Present Timing: Constant Severity Initially: Mild Severity Currently: Mild Pain Intensity: 0 Character: Cough: Productive - green Aggravating Factors: Deep Breaths, Recumbent Position Alleviating Factors: Bronchodilator - has albuterol INH and has used twice with noticeable improvement of symptoms Associated Signs And Symptoms: Positive: Fever, Chills, URI, Nasal Congestion, Hoarseness - Risk Factors Pulmonary Embolism Risk Factors: Negative Cardiac Risk Factors: Negative Pseudomonas Risk Factors: Negative Tuberculosis Risk Factors: Negative - Allergies/Home Medications Allergies/Adverse Reactions: Allergies Allergy/AdvReac Type Severity Reaction Status Date / Time No Known Allergies Allergy Verified 11/03/18 10:54 Home Medications: Home Medications Albuterol HFA INHALER* [Ventolin HFA Inhaler*] 1 - 2 puff INH Q4H PRN 11/03/18 [ History Confirmed 11/03/18] Levothyroxine TAB* [Synthroid 75 MCG TAB*] 75 mcg PO DAILY 11/03/18 [History Confirmed 11/03/18] diphenhydrAMINE HCl [Zzzquil] 50 mg PO BEDTIME 11/03/18 [History Confirmed 11/03] PMH/Surg Hx/FS Hx/Imm Hx Previously Healthy: Yes Respiratory History: Bronchitis, Pneumonia - Surgical History Surgical History: Yes Surgery Procedure, Year, and Place: C-Sections, 2016 2010, [place]; Appendectomy, 2006, [place]; Right Oopherectomy, 2003, [place]; Tubal ligation - Family History Known Family History: Positive: Hypertension, Diabetes - Social History Occupation: Employed Full-time Lives: With Family Alcohol Use: None Substance Use Type: None Smoking Status (MU): Former Smoker Type: Cigarettes Amount Used/How Often: <1 PPD Length of Time of Smoking/Using Tobacco: <1 PPD x 1 Year Have You Smoked in the Last Year: No When Did the Patient Quit Smoking/Using Tobacco: 2009 - Immunization History Most Recent Tetanus Shot: 2009 Review of Systems All Other Systems Reviewed And Are Negative: Yes Constitutional: Positive: Fever, Chills, Fatigue Skin: Positive: Negative Eyes: Positive: Negative ENT: Positive: Sore Throat, Sinus Congestion Respiratory: Positive: Cough Cardiovascular: Positive: Negative Gastrointestinal: Positive: Negative Genitourinary: Positive: Negative Motor: Positive: Negative Neurovascular: Positive: Negative Musculoskeletal: Positive: Myalgia Neurological: Positive: Headache Psychological: Positive: Negative Is Patient Immunocompromised?: No Physical Exam Triage Information Reviewed: Yes Appearance: Ill-Appearing Vital Signs: Initial Vital Signs Temp 99 F 11/03/18 10:52 Pulse 68 11/03/18 10:52 Resp 18 11/03/18 10:52 BP 103/72 11/03/18 10:52 Pulse Ox 100 11/03/18 10:52 Vital Signs Reviewed: Yes Eye Exam: Normal ENT: Positive: Nasal congestion Dental Exam: Normal Neck exam: Normal Respiratory Exam: Normal Cardiovascular Exam: Normal Musculoskeletal Exam: Normal Neurological Exam: Normal Psychological Exam: Normal Skin Exam: Normal Respiratory Course/Dx - Differential Dx/Diagnosis Differential Diagnosis/HQI/PQRI: Bronchitis, Influenza Provider Diagnosis: Bronchitis, Viral syndrome Discharge - Sign-Out/Discharge Documenting (check all that apply): Patient Departure All imaging exams completed and their final reports reviewed: No Studies - Discharge Plan Condition: Stable Disposition: HOME Prescriptions: Benzonatate CAP* [Tessalon 100 MG CAP*] 200 mg PO Q8H PRN #30 cap PRN Reason: Cough Fexofenadine/Pseudoephedrine [Tracy-D 24 Hour Tablet] 1 each PO DAILY #10 tab.er.24h predniSONE TAB* [Deltasone 10 MG TAB*] 30 mg PO DAILY #12 tab Patient Education Materials: Acute Bronchitis (ED), Viral Syndrome (ED) Referrals: [facility] [Outside] - If Needed No Primary Care Phys,NOPCP [Primary Care Provider] - - Billing Disposition and Condition Condition: STABLE Disposition: Home
== END 2018-11-03 11:24 | disposition home or self-care (01) ==
LOC: UCCORT 10:13
DX: J40 Bronchitis, not specified as acute or chronic (principal); B34.9 Viral infection, unspecified; R05 Cough; Z87.09 Personal history of other diseases of the respiratory system; Z87.891 Personal history of nicotine dependence
CPT/HCPCS: 99212; G0463

== ENCOUNTER 2019-03-05 10:37 | Emergency (ER) | payer OTHER, MEDICAID ==
[2019-03-05 11:21] VITALS: BP 131/83
--- NOTE | 2019-03-05 12:00 | UC ---
Abdominal Pain Female HPI - HPI Summary HPI Summary: Pt presents with sudden onset of abdominal discomfort and diarrhea that began this morning. Pt denies fever, chills, nausea, or vomiting. Pt states that in the past but not today, she has had black and tarry stools. - History of Current Complaint Chief Complaint: UCGI Stated Complaint: STOMACHACHE DIARRHEA Time Seen by Provider: 03/05/19 11:48 Hx Obtained From: Patient Hx Last Menstrual Period: 02/15/19 ?: No Onset/Duration: Sudden Onset, Lasting Hours, Still Present Timing: Constant Severity Initially: Mild Severity Currently: Mild Pain Intensity: 3 Location: Diffuse Radiates: Yes Character: Colicy, Cramping, Dull Aggravating Factor(s): Food Alleviating Factor(s): Other: - has not tried anything Associated Signs and Symptoms: Positive: Diarrhea - Risk Factors Ectopic Risk Factor: Maternal Age ^ 30 Ovarian Torsion Risk Factor: Tubal Ligation Allergies/Adverse Reactions: Allergies Allergy/AdvReac Type Severity Reaction Status Date / Time No Known Allergies Allergy Verified 03/05/19 11:16 PMH/Surg Hx/FS Hx/Imm Hx Previously Healthy: Yes - Surgical History Surgical History: Yes Surgery Procedure, Year, and Place: C-Sections, 2015 2010, [place]; Appendectomy, 2006, [place]; Right Oopherectomy, 2003, [place]; Tubal ligation - Family History Known Family History: Positive: Hypertension, Diabetes - Social History Occupation: Employed Full-time Lives: With Family Alcohol Use: Rare Substance Use Type: None Smoking Status (MU): Former Smoker Type: Cigarettes Amount Used/How Often: <1 PPD Length of Time of Smoking/Using Tobacco: <1 PPD x 1 Year Have You Smoked in the Last Year: No When Did the Patient Quit Smoking/Using Tobacco: 2009 - Immunization History Most Recent Tetanus Shot: 2010 Vaccination Up to Date: No Review of Systems All Other Systems Reviewed And Are Negative: Yes Constitutional: Positive: Negative Skin: Positive: Negative Eyes: Positive: Negative ENT: Positive: Negative Cardiovascular: Positive: Negative Gastrointestinal: Positive: Abdominal Pain, Diarrhea Genitourinary: Positive: Negative Motor: Positive: Negative Neurovascular: Positive: Negative Musculoskeletal: Positive: Negative Neurological: Positive: Negative Psychological: Positive: Negative Is Patient Immunocompromised?: No Physical Exam Triage Information Reviewed: Yes Appearance: Well-Appearing Vital Signs: Initial Vital Signs Temp 97.3 F 03/05/19 11:16 Pulse 62 03/05/19 11:16 Resp 17 03/05/19 11:16 BP 131/83 03/05/19 11:16 Pulse Ox 100 03/05/19 11:16 Vital Signs Reviewed: Yes Eye Exam: Normal ENT Exam: Normal Dental Exam: Normal Neck exam: Normal Respiratory Exam: Normal Cardiovascular Exam: Normal Abdominal Exam: Other - tender RUQ Musculoskeletal Exam: Normal Neurological Exam: Normal Psychological Exam: Normal Skin Exam: Normal Abd Pain Female Course/Dx - Differential Dx/Diagnosis Differential Diagnosis: Diverticulitis, Gall Bladder Disease, Irritable Bowel Syndrome Provider Diagnosis: Abdominal pain, Diarrhea Discharge ED - Sign-Out/Discharge Documenting (check all that apply): Patient Departure All imaging exams completed and their final reports reviewed: No Studies - Discharge Plan Condition: Stable Disposition: HOME Patient Education Materials: Acute Abdominal Pain (ED) Forms: *Work Release Referrals: [facility] [Outside] - As Soon As Possible No Primary Care Phys,NOPCP [Primary Care Provider] - Additional Instructions: Please follow up with a PCP as soon as possible regarding your current illness. If your symptoms worsen go directly to the closest emergency room. - Billing Disposition and Condition Condition: STABLE Disposition: Home
== END 2019-03-05 12:10 | disposition home or self-care (01) ==
LOC: UCCORT 10:37
DX: R10.11 Right upper quadrant pain (principal); Z87.891 Personal history of nicotine dependence
CPT/HCPCS: 99211; G0463

== ENCOUNTER 2019-07-14 11:05 | Emergency (ER) | payer OTHER ==
[2019-07-14 12:31] VITALS: BP 101/76
--- NOTE | 2019-07-14 12:44 | UC ---
UC General HPI - HPI Summary HPI Summary: Patient started with nasal congestion 4 days ago, thick congestion with dry cough, no Fevers or chills. Appetite adequate. Has not tried anything OTC. No N/V/D. No smoking history. Meds: reviewed - History of Current Complaint Chief Complaint: UCRespiratory Stated Complaint: SINUS Time Seen by Provider: 07/14/19 12:20 Hx Last Menstrual Period: 06/24/19 Pain Intensity: 0 - Allergy/Home Medications Allergies/Adverse Reactions: Allergies Allergy/AdvReac Type Severity Reaction Status Date / Time No Known Allergies Allergy Verified 07/14/19 12:23 Home Medications: Home Medications Levothyroxine TAB* [Synthroid TAB*] 50 mcg PO DAILY 07/14/19 [History Confirmed 07/14/19] PMH/Surg Hx/FS Hx/Imm Hx Previously Healthy: Yes - Surgical History Surgical History: Yes Surgery Procedure, Year, and Place: C-Sections, 2015 2010, [place]; Appendectomy, 2006, [place]; Right Oopherectomy, 2003, [place]; Tubal ligation - Family History Known Family History: Positive: Hypertension, Diabetes - Social History Alcohol Use: Rare Substance Use Type: None Smoking Status (MU): Former Smoker Type: Cigarettes Amount Used/How Often: <1 PPD Length of Time of Smoking/Using Tobacco: <1 PPD x 1 Year Have You Smoked in the Last Year: No When Did the Patient Quit Smoking/Using Tobacco: 2009 - Immunization History Most Recent Tetanus Shot: 2010 Vaccination Up to Date: No Review of Systems All Other Systems Reviewed And Are Negative: Yes Constitutional: Positive: Negative ENT: Positive: Sinus Congestion Physical Exam Triage Information Reviewed: Yes Appearance: Well-Appearing Vital Signs: Initial Vital Signs Temp 98.2 F 07/14/19 12:24 Pulse 88 07/14/19 12:24 Resp 20 07/14/19 12:24 BP 101/76 07/14/19 12:24 Pulse Ox 100 07/14/19 12:24 Eyes: Positive: Conjunctiva Clear ENT: Positive: Nasal congestion, TMs normal, Other - turbinates erythematous or edematous Neck: Positive: Supple, Nontender Respiratory: Positive: Lungs clear, Normal breath sounds Cardiovascular: Positive: RRR, No Murmur Course/Dx - Course Course Of Treatment: This is a 34 yr old with URI Nontoxic appearing Plan Recommend Flonase 2 sprays daily Recommend a decongestant such as sudafed Rest, fluids, ibuprofen as needed for pain/fever If symptoms persist or worsen, recommend follow up with PCP or return to urgent care - Diagnoses Provider Diagnosis: Upper respiratory infection Discharge ED - Sign-Out/Discharge Documenting (check all that apply): Patient Departure All imaging exams completed and their final reports reviewed: No Studies - Discharge Plan Condition: Good Disposition: HOME Prescriptions: Fluticasone NASAL SPRAY 50MCG* [Flonase NASAL SPRAY 50MCG*] 2 spray BOTH NARES DAILY #1 btl Patient Education Materials: Upper Respiratory Infection (ED) Forms: *Work Release Referrals: Michael Qiu MD [Primary Care Provider] - Additional Instructions: Recommend Flonase 2 sprays daily Recommend a decongestant such as sudafed Rest, fluids, ibuprofen as needed for pain/fever If symptoms persist or worsen, recommend follow up with PCP or return to urgent care - Billing Disposition and Condition Condition: GOOD Disposition: Home
[2019-07-14 12:53] LABS: Influenza A Molecular NEGATIVE (Negative); Influenza B Molecular NEGATIVE (Negative)
== END 2019-07-14 13:10 | disposition home or self-care (01) ==
LOC: UCCORT 11:05
DX: J06.9 Acute upper respiratory infection, unspecified (principal); Z87.891 Personal history of nicotine dependence
CPT/HCPCS: 99212; G0463